=== PATIENT | female | born 1950 | race Caucasian/White ===

== ENCOUNTER 2019-09-18 09:18 | Day surgery (SDC) | payer BC ==
[~2019-09-18] VITALS: Ht 162.6 cm; Wt 81.7 kg
[2019-09-18] VITALS (12 sets, daily range): BP systolic 110–147; BP diastolic 54–72
[~2019-09-18 09:18] MED LIST: AMLO2.5T5 PO; ASPI-1265 PO; ATEN50TA PO; ATOR20TA PO; BUPR-344 PO; CHOL3000 PO; ESCI10TA61 PO; LANS30CA37 PO; LISI40TA4 PO; MULT-1085 PO; OMEG-15 PO; TRIA1TAB92 PO
[2019-09-18] MEDS ORDERED: diphenhydrAMINE 25mg capsule PO PRN (09:50)
[2019-09-18] MEDS ORDERED: nitroGLYCERIN 0.4mg SUBLingual tab SL PRN (09:50)
[2019-09-18] MEDS ORDERED: LORazepam 0.5 MG tablet PO PRN (09:50)
[2019-09-18] MEDS ORDERED: normal saline 1,000 ML IV SCH (09:50)
[2019-09-18] MEDS ORDERED: methylPREDNISolone sod succ 125mg/2ml vial IV ONE (09:50)
[2019-09-18] MEDS ORDERED: NITR0.4T51 SL (09:55)
[2019-09-18] MEDS ORDERED: METO25TA6 PO (09:55)
[2019-09-18 10:08] LABS: BASOPHILS # (AUTO) 0.1 X10'3 (0-0.2); BASOPHILS % (AUTO) 0.7 % (0-1); EOSINOPHILS # (AUTO) 0.1 X10'3 (0-0.9); EOSINOPHILS % (AUTO) 0.8 % (0-6); HEMOGLOBIN 14.7 g/dl (12.0-16.0); LYMPHOCYTES # (AUTO) 2.4 X10'3 (1.1-4.8); LYMPHOCYTES % (AUTO) 20.1 % (21-51); MEAN CORPUSCULAR HEMOGLOBIN 30.6 PG (27.0-31.0); MEAN CORPUSCULAR HGB CONC 34.1 g/dL (33.0-36.5); MEAN CORPUSCULAR VOLUME 89.7 FL (78-98); MEAN PLATELET VOLUME 9.3 FL (7.4-10.4); MONOCYTES # (AUTO) 0.5 X10'3 (0-0.9); MONOCYTES % (AUTO) 4.7 % (2-12); NEUTROPHILS # (AUTO) 8.6 X10'3 (1.8-7.7); NEUTROPHILS % (AUTO) 73.7 % (42-75); PLATELET COUNT 244 X10'3 (140-440); RED CELL DISTRIBUTION WIDTH 13.1 % (11.5-14.5); WHITE BLOOD COUNT 11.7 X10'3 (4.5-11.0)
[2019-09-18 10:18] LABS: ALBUMIN 4.1 G/DL (3.4-5.0); ANION GAP 10 (8-16); BLOOD UREA NITROGEN 14 MG/DL (7-18); BUN/CREATININE RATIO 15.1 (6.6-38.0); CALCIUM 9.7 MG/DL (8.5-10.1); CHLORIDE 105 MMOL/L (99-107); CREATININE 0.93 MG/DL (0.40-0.90); GLUCOSE 135 MG/DL (70-104); POTASSIUM 3.5 MMOL/L (3.5-5.1); SODIUM 143 MMOL/L (135-145); eGFR 60 ML/MIN
[2019-09-18] MEDS ORDERED: midazolam 2 mg/2 ml injection ONE ×2 (10:46→11:07)
[2019-09-18] MEDS ORDERED: fentaNYL/PF 50MCG/1 ML 2ML syringe ONE ×2 (10:46→11:12)
[2019-09-18] MEDS ORDERED: LIDOcaine 1% (10mg/ml)w/preservative injection 20ml MDV ONE (10:46)
[2019-09-18] MEDS ORDERED: iohexol 350MG/ML 100ml bottle IV ONE (10:47)
[2019-09-18] MEDS ORDERED: iohexol 350 MG/ML 50ML vial IV ONE (10:47)
[2019-09-18] MEDS ORDERED: ondansetron/PF 4mg/2ml inj IV PRN (13:10)
[2019-09-18] MEDS ORDERED: HYDROcodone/acetaminophen 10/325mg tab PO PRN (13:10)
[2019-09-18] MEDS ORDERED: OXAZEpam 15mg capsule PO PRN (13:10)
[2019-09-18] MEDS ORDERED: proCHLORperazine 10 MG/2 ml inj IV PRN (13:10)
[2019-09-18] MEDS ORDERED: HYDROcodone/acetaminophen 5mg/325mg tablet PO PRN (13:10)
--- NOTE | 2019-09-18 13:20 | NUR ---
pt was brought a turkey sandwich ate 100% of lunch tray
--- NOTE | 2019-09-18 14:06 | NUR ---
pt voided x1.
--- NOTE | 2019-09-18 16:23 | NUR ---
pt resting comfortably. positioned pillow under rt arm for comfort. pt had 250ml juice.
== END 2019-09-18 19:00 | disposition home or self-care (01) ==
LOC: SSTAY O 09:18
PROVIDERS: ATTEND Internal Medicine Cardiovascular Disease
DX: R94.39 Abnormal result of other cardiovascular function study (principal); I25.119 Atherosclerotic heart disease of native coronary artery with unspecified angina pectoris; I10 Essential (primary) hypertension; F32.9 Major depressive disorder, single episode, unspecified; E78.5 Hyperlipidemia, unspecified; K21.9 Gastro-esophageal reflux disease without esophagitis; F17.210 Nicotine dependence, cigarettes, uncomplicated; Z88.8 Allergy status to other drugs, medicaments and biological substances; Z88.0 Allergy status to penicillin; Z91.013 Allergy to seafood; Z79.899 Other long term (current) drug therapy
CPT/HCPCS: 36415; 71046; 80048; 85025; 85610; 93005; 93458; 99152; 99153; C1769; J1644; J2001; J2250; J2930; J3010; J7030; Q0163; Q9967; A6258; C1760

== ENCOUNTER 2024-06-05 11:58 | Day surgery (SDC) | payer BC ==
[2024-06-05] VITALS (12 sets, daily range): BP systolic 105–151; BP diastolic 48–78; PULSE 63–74; RESP 12–16; TEMP 97.8; O2SAT 92–97
[~2024-06-05] VITALS: Ht 162.6 cm; Wt 82.0 kg
[~2024-06-05 11:58] MED LIST changes: -ATEN50TA PO; +ESCI-8 PO; -ESCI10TA61 PO; +LISI40TA13 PO; -LISI40TA4 PO; +LOP25T PO; +NITR0.4T51 SL; -OMEG-15 PO
[2024-06-05] MEDS ORDERED: CLOP75TA34 PO (12:41)
[2024-06-05] MEDS ORDERED: iohexol 350MG/ML 100ml bottle IV ONE ×2 (13:05→14:04)
[2024-06-05] MEDS ORDERED: LIDOcaine 1% 30ml preserv. free vial ONE (13:05)
[2024-06-05] MEDS ORDERED: midazolam 1 mg/ML 2ml injection ONE ×2 (13:05→13:50)
[2024-06-05] MEDS ORDERED: fentaNYL/PF 50MCG/1 ML 2ML syringe ONE (13:05)
[2024-06-05 13:23] LABS: BASOPHILS # (AUTO) 0.1 X10'3 (0-0.2); BASOPHILS % (AUTO) 0.8 % (0-1); EOSINOPHILS % (AUTO) 0.3 % (0-6); HEMATOCRIT 41.5 % (35.0-45.0); HEMOGLOBIN 13.6 g/dl (12.0-16.0); LYMPHOCYTES # (AUTO) 1.6 X10'3 (1.1-4.8); MEAN CORPUSCULAR HGB CONC 32.8 g/dL (33.0-36.5); MEAN CORPUSCULAR VOLUME 91.5 FL (78-98); MEAN PLATELET VOLUME 8.5 FL (7.4-10.4); MONOCYTES # (AUTO) 0.3 X10'3 (0-0.9); MONOCYTES % (AUTO) 2.8 % (2-12); NEUTROPHILS # (AUTO) 9.2 X10'3 (1.8-7.7); NEUTROPHILS % (AUTO) 82.1 % (42-75); PLATELET COUNT 225 X10'3 (140-440); RED BLOOD COUNT 4.54 X10'6 (4.20-5.60); RED CELL DISTRIBUTION WIDTH 13.3 % (11.5-14.5); WHITE BLOOD COUNT 11.2 X10'3 (4.5-11.0)
[2024-06-05] MEDS ORDERED: diphenhydrAMINE 50 mg/ml inj ONE (13:31)
[2024-06-05 13:36] LABS: APTT 29 SECONDS (22-32); PROTHROMBIN TIME 10.7 SECONDS (9.0-12.0)
[2024-06-05 13:40] LABS: ALBUMIN 3.9 G/DL (3.4-5.0); ANION GAP 10 (8-16); BLOOD UREA NITROGEN 13 MG/DL (7-18); CALCIUM 9.7 MG/DL (8.5-10.1); CHLORIDE 105 MMOL/L (99-107); CREATININE 0.93 MG/DL (0.40-0.90); GLUCOSE 155 MG/DL (70-104); POTASSIUM 3.8 MMOL/L (3.5-5.1); SODIUM 141 MMOL/L (135-145); eCRCL 48 ML/MIN; eGFR 59 ML/MIN
[2024-06-05] MEDS ORDERED: diphenhydrAMINE 25mg capsule PO PRN (14:00)
[2024-06-05] MEDS ORDERED: dextrose 50%-water 50ml dispensing syringe IV PRN ×2 (14:00)
[2024-06-05] MEDS ORDERED: LORazepam 0.5 MG tablet PO PRN (14:00)
[2024-06-05] MEDS ORDERED: nitroGLYCERIN 0.4mg SUBLingual tab SL PRN ×2 (14:00→15:15)
[2024-06-05] MEDS ORDERED: methylPREDNISolone sod succ 125mg/2ml vial IV ONE (14:00)
[2024-06-05] MEDS ORDERED: glucagon, human recombinant 1mg kit SUBCUT PRN (14:00)
[2024-06-05] MEDS ORDERED: DEXTROSE 15 GM of carb/4 tabs (each vial/BOTTLE has 4 tablets) PO PRN ×2 (14:00)
[2024-06-05] MEDS ORDERED: normal saline 1,000 ML IV SCH (14:00)
[2024-06-05] MEDS ORDERED: OXAZEpam 15mg capsule PO PRN (15:15)
[2024-06-05] MEDS ORDERED: proCHLORperazine 10 MG/2 ml inj IV PRN (15:15)
[2024-06-05] MEDS ORDERED: ondansetron/PF 4mg/2ml inj IV PRN (15:15)
[2024-06-05] MEDS ORDERED: HYDROcodone/acetaminophen 5mg/325mg tablet PO PRN (15:15)
[2024-06-05] MEDS ORDERED: HYDROcodone/acetaminophen 10/325mg tab PO PRN (15:15)
[2024-06-05] MEDS ORDERED: normal saline 1000ml 1,000 ML IV SCH (15:15)
== END 2024-06-05 19:20 | disposition home or self-care (01) ==
LOC: SSTAY O 11:58
PROVIDERS: ATTEND Internal Medicine Cardiovascular Disease
DX: R94.39 Abnormal result of other cardiovascular function study (principal); I25.119 Atherosclerotic heart disease of native coronary artery with unspecified angina pectoris; I44.7 Left bundle-branch block, unspecified; I10 Essential (primary) hypertension; J44.9 Chronic obstructive pulmonary disease, unspecified; E66.9 Obesity, unspecified; G47.30 Sleep apnea, unspecified; I25.2 Old myocardial infarction; Z68.31 Body mass index [BMI] 31.0-31.9, adult; Z88.0 Allergy status to penicillin; Z91.041 Radiographic dye allergy status; Z88.8 Allergy status to other drugs, medicaments and biological substances
CPT/HCPCS: 36415; 71046; 75625; 80048; 85025; 85610; 85730; 93005; 93458; 99152; 99153; J1200; J1644; J2250; J3010; J3490; J7030; Q9967; 75630; A6258; C1760